=== PATIENT | female | born 1965 | race American Indian/Alaskan Native ===

== ENCOUNTER 2017-06-01 08:20 | Day surgery (SDC) | payer BC, OTHER ==
--- NOTE | 2017-06-01 08:51 | Anesthesia Day of Surgery ---
Anesthesia Day of Surgery - Day of Surgery Patient Examined: Yes Patient H&P Reviewed: Yes Patient is NPO: Yes
--- NOTE | 2017-06-01 08:51 | Anesthesia Consultation ---
Anesthesia Consult and Med Hx Date of service: 06/01/17 - Airway Anesthetic Teeth Evaluation: Good ROM Head & Neck: Adequate Mental/Hyoid Distance: Adequate Mallampati Class: Class II Intubation Access Assessment: Probably Good - Pulmonary Exam CTA: Yes - Cardiac Exam Cardiac Exam: RRR - Pre-Operative Health Status ASA Pre-Surgery Classification: ASA2 Proposed Anesthetic Plan: MAC - Pulmonary Hx Asthma: Yes SOB: Yes Hx Sleep Apnea: Yes - Cardiovascular System Hx Hypertension: Yes - Central Nervous System Hx Back Pain: Yes Hx Psychiatric Problems: Yes (PTSD) - Endocrine Hx Hypothyroidism: Yes - Hematic Hx Anemia: Yes
[2017-06-01] MEDS ORDERED: NACL 0.9% 1000 ML 1,000 ML IV SCH (09:00)
--- NOTE | 2017-06-01 09:36 | Discharge Summary ---
Providers - Providers Date of discharge: 06/01/17 Attending physician: LUPE LOPEZ Hospitalization Reason for admission: outpateint EGD Condition: Stable Procedures: EGD Disposition: - TO HOME OR SELFCARE Core Measure Documentation - Palliative Care Palliative Care/ Comfort Measures: Not Applicable - Core Measures Any of the following diagnoses?: none Exam - Physical Exam Narrative exam: unchanged from preop - Constitutional Vitals: Temp Pulse Resp BP Pulse Ox 97.8 F 76 17 152/98 98 06/01/17 09:02 06/01/17 09:02 06/01/17 09:02 06/01/17 09:02 06/01/17 09:02 Plan Activity: advance as tolerated Diet: low carbohydrate
--- NOTE | 2017-06-01 09:38 | Operative Report ---
Operative Report Operative Report: EGD Post bypass DATE: 06/01/2017 OPERATIVE REPORT - EGD PREOP DIAGNOSIS: gastric dyspepsia/epigastric pain POSTOP DIAGNOSIS: same SURGERY: Upper endoscopy. SURGEON: Madhu Sosa M.D. GRADER MARKER: Brian Jones M.D. TYPE OF ANESTHESIA: MAC. ESTIMATED BLOOD LOSS: None. COMPLICATIONS: None. SPECIMENS REMOVED: None. FINDINGS: 1. normal esophagus 2. gastric pouch - 50ml 3. gastrojejunal anastomosis is 25mm INDICATIONS:INDICATION FOR PROCEDURE: Patient is a 51-year-old female s/p gastric [place] [address] Peralta. The patient is here today for evaluation for gastric dyspepsia/epigastric pain. PROCEDURE DETAILS: After consent was reviewed, patient was taken back to the operating room where patient was placed in the left lateral decubitus position and a bite block was placed in the mouth. After a time-out was called, MAC anesthesia was initiated. I then passed the endoscope into the patients oropharynx, into the esophagus, visualized the entire esophagus, which was all within normal limits. I then visualized the gastric pouch which was normal and about 50ml in size. The gastrojejunal anastomosis was normal at about 25mm. The proximal portion of the diogenes limb was normal. I then desufflated the gastric pouch and removed the endoscope. Patient tolerated procedure well and was transferred to recovery room in good and stable condition
[2017-06-01] MEDS ORDERED: WATER FOR IRRIG STERILE IR ONE (10:17)
[2017-06-01] MEDS ORDERED: DIPRIVAN 10 MG/ML IV ONE ×2 (11:37)
[2017-06-01 12:29] VITALS: BP 152/94
--- NOTE | 2017-06-01 13:55 | Post Anesthesia Evaluation ---
- Post Anesthesia Evaluation Patient Participated: Yes Airway Patent: Yes Stable Respiratory Function: Yes Temp > 96.8F: Yes Pain Manageable: Yes Adequeate Hydration: Yes Anesthesia Complications: No Block Receding Appropriately: Not Applicable
== END 2017-06-01 08:21 | disposition home or self-care (01) ==
LOC: GIO 08:20
PROVIDERS: ATTEND Specialist
DX: R10.13 Epigastric pain (principal); I10 Essential (primary) hypertension; F43.10 Post-traumatic stress disorder, unspecified; E03.9 Hypothyroidism, unspecified; D64.9 Anemia, unspecified; J45.998 Other asthma; G47.33 Obstructive sleep apnea (adult) (pediatric); G47.00 Insomnia, unspecified; M19.90 Unspecified osteoarthritis, unspecified site; K21.9 Gastro-esophageal reflux disease without esophagitis; E66.01 Morbid (severe) obesity due to excess calories; Z68.41 Body mass index [BMI] 40.0-44.9, adult; Z79.899 Other long term (current) drug therapy; Z88.5 Allergy status to narcotic agent; Z88.8 Allergy status to other drugs, medicaments and biological substances; Z98.84 Bariatric surgery status; Z98.890 Other specified postprocedural states; Z82.49 Family history of ischemic heart disease and other diseases of the circulatory system
CPT/HCPCS: 43235; 81025; J2704; J7030